=== PATIENT | female | born 1950 | race Caucasian/White ===

== ENCOUNTER 2018-04-21 10:40 | Outpatient (CLI) | payer OTHER ==
[2018-04-21 11:09] LABS: MEAN CORPUSCULAR HEMOGLOBIN 33.7 pg (28.0-34.0)
[2018-04-21 11:10] LABS: EOSINOPHILS % 4.5 % (0.0-6.8); NEUTROPHILS # 0.7 # k/uL (1.4-7.7)
== END 2018-04-21 10:41 ==
LOC: LAB 10:40
PROVIDERS: ATTEND Internal Medicine Hematology & Oncology
DX: I74.9 Embolism and thrombosis of unspecified artery (principal); C50.411 Malignant neoplasm of upper-outer quadrant of right female breast
CPT/HCPCS: 36415; 85025

== ENCOUNTER 2018-06-07 09:51 | Outpatient (CLI) | payer OTHER ==
[2018-06-07 10:19] LABS: BASOPHILS % 0.8 (0.0-1.5); EOSINOPHILS % 2.7 % (0.0-6.8); MEAN CORPUSCULAR HEMOGLOBIN 35.2 pg (28.0-34.0); MONOCYTES % 9.4 % (0.0-11.0); NEUTROPHILS # 1.2 # k/uL (1.4-7.7)
== END 2018-06-07 09:56 | disposition home or self-care (01) ==
LOC: LAB 09:51
PROVIDERS: ATTEND Internal Medicine Hematology & Oncology
DX: C50.411 Malignant neoplasm of upper-outer quadrant of right female breast (principal)
CPT/HCPCS: 36415; 85025